=== PATIENT | female | born 1930 | race Caucasian/White ===

== ENCOUNTER 2018-02-09 13:09 | Emergency (ER) | payer OTHER ==
[~2018-02-09] VITALS: Ht 152.4 cm; Wt 67.1 kg
[~2018-02-09 13:09] MED LIST: AMBIEN5 MG PO; BENTYL10 MG/ML PO; DRAMAMINE50 M1; GLUCOPHAGE XR500 MG; PHENERGAN25 MG; PROTONIX20 MG; SYNTHROID50 MCG PO; TIGAN250 MG PO; XANAX0.25 MG PO; ZANTAC15 MG/ML PO
[2018-02-09] MEDS ORDERED: FORTAMET1000 MG (13:47)
[2018-02-09] MEDS ORDERED: LANTUS SOL100 UNIT/1 (13:47)
[2018-02-09] MEDS ORDERED: NAMENDA10 MG (13:47)
[2018-02-09] MEDS ORDERED: PRAVASTATIN SOD40 MG (13:47)
== END 2018-02-09 16:17 | disposition home or self-care (01) ==
LOC: ER 13:09
DX: B34.9 Viral infection, unspecified (principal)

== ENCOUNTER 2018-08-11 06:12 | Emergency (ER) | payer OTHER ==
[~2018-08-11] VITALS: Ht 152.4 cm; Wt 72.6 kg
[~2018-08-11 06:12] MED LIST changes: +FORTAMET1000 MG; +LANTUS SOL100 UNIT/1; +NAMENDA10 MG; +PRAVASTATIN SOD40 MG
== END 2018-08-11 10:34 | disposition home or self-care (01) ==
LOC: ER 06:12
DX: J06.9 Acute upper respiratory infection, unspecified (principal)

== ENCOUNTER 2020-02-27 10:08 | Emergency (ER) | payer OTHER ==
[~2020-02-27] VITALS: Ht 152.4 cm; Wt 73.5 kg
[2020-02-27] MEDS ORDERED: METHYLPREDNISOLO8 MG (10:29)
[2020-02-27] MEDS ORDERED: CLARITIN10 MG PO (13:23)
[2020-02-27] MEDS ORDERED: DUI500 PO (13:23)
[2020-02-27] MEDS ORDERED: PEPCID AC20 MG PO (13:23)
[2020-02-27] MEDS ORDERED: CLOTRIMAZOLE-BE15 GM TOP (13:23)
[2020-02-27] MEDS ORDERED: MOMETASONE FURO15 G2 TOP (13:23)
== END 2020-02-27 13:35 | disposition home or self-care (01) ==
LOC: ER 10:08
DX: R21 Rash and other nonspecific skin eruption (principal); Z03.818 Encounter for observation for suspected exposure to other biological agents ruled out